=== PATIENT | female | born 1965 | race Caucasian/White ===

== ENCOUNTER 2019-07-31 11:40 | Emergency (ER) | payer OTHER ==
[2019-07-31 12:00] VITALS: BP 130/73
--- NOTE | 2019-07-31 12:02 | UC ---
Respiratory Complaint HPI - HPI Summary HPI Summary: 54 yo female presents with abdominal pain. She tells me that she has not had a bowel movement in 11 days. Over the last few months has had small hard BMs. Recalls that about 7 years ago she had an instance where she went 11 or 12 days without a BM, but this resolved with miralax and colace. This time she has taken miralax and colace with no results. She is not passing any stool or mucus. Yesterday she became nauseous and has not eaten since that time. She feels bloated with pain to her left abdomen. No hx of abdominal surgeries or obstruction. She returned from [facility] about 20 days ago. Had a root canal about a month ago - but no pain meds given. She denies vomiting, blood in stool, dysuria, back/flank pain. - History of Current Complaint Chief Complaint: UCAbdominalPain Stated Complaint: STOMACH COMPLAINT Time Seen by Provider: 07/31/19 12:02 Hx Obtained From: Patient Hx Last Menstrual Period: 4 WEEKS AGO Onset/Duration: Gradual Onset Severity Initially: Mild Severity Currently: Mild Pain Intensity: 3 Pain Scale Used: 0-10 Numeric - Allergies/Home Medications Allergies/Adverse Reactions: Allergies Allergy/AdvReac Type Severity Reaction Status Date / Time No Known Allergies Allergy Verified 07/31/19 12:00 PMH/Surg Hx/FS Hx/Imm Hx - Additional Past Medical History Additional PMH: BCC - Surgical History Surgical History: Yes Surgery Procedure, Year, and Place: tonsillectomy - Family History Known Family History: Positive: None - Social History Occupation: Employed Full-time Lives: With Family Alcohol Use: None Substance Use Type: None Smoking Status (MU): Never Smoked Tobacco - Immunization History Most Recent Influenza Vaccination: DID NOT GET THIS YEAR Review of Systems All Other Systems Reviewed And Are Negative: No Constitutional: Positive: Negative Skin: Positive: Negative Eyes: Positive: Negative ENT: Positive: Negative Respiratory: Positive: Negative Cardiovascular: Positive: Negative Gastrointestinal: Positive: Abdominal Pain, Nausea Genitourinary: Positive: Negative Neurological/Mental Status: Positive: Negative Psychological: Positive: Negative Physical Exam - Summary Physical Exam Summary: GENERAL: NAD. WDWN. No pain distress. SKIN: No rashes, sores, lesions, or open wounds. NECK: Supple. Nontender. No lymphadenopathy. CHEST: CTAB. No r/r/w. No accessory muscle use. Breathing comfortably and in no distress. CV: RRR. Pulses intact. Cap refill <2seconds ABDOMEN: Firmness to left periumbilical region with TTP. Otherwise soft. No CVA tenderness. Bowel sounds present NEURO: Alert. PSYCH: Age appropriate behavior. Triage Information Reviewed: Yes Vital Signs: Initial Vital Signs Temp 98.8 F 07/31/19 11:57 Pulse 86 07/31/19 11:57 Resp 15 07/31/19 11:57 BP 130/73 07/31/19 11:57 Pulse Ox 100 07/31/19 11:57 Vital Signs Reviewed: Yes Diagnostics - Radiology Abdomen XR Radiology Interpretation Completed By: Radiologist Summary of Radiographic Findings: Flat plate of the abdomen demonstrates a moderate amount of stool with stool in the right colon, descending colon and rectum. No dilated loops of small bowel are noted. The psoas margins are intact. IMPRESSION: Moderate to large amount of stool in the colon. No dilated loops of small bowel are noted. Respiratory Course/Dx - Course Course Of Treatment: XR as above. No indication of obstruction. Discussed with pt. Will have her try mag citrate or a fleet enema. If not results with this or if symptoms worsen - recommend going to the ER for further evaluation. Pt voiced understanding and agrees with plan. - Differential Dx/Diagnosis Provider Diagnosis: Constipated Discharge ED - Sign-Out/Discharge Documenting (check all that apply): Patient Departure All imaging exams completed and their final reports reviewed: Yes - Discharge Plan Condition: Stable Disposition: HOME Prescriptions: Magnesium CITRATE* [Citrate of Magnesia*] 300 ml PO ONCE #1 btl Patient Education Materials: Constipation (ED) Referrals: Radha Mauro MD [Primary Care Provider] - Additional Instructions: If you develop a fever, shortness of breath, chest pain, new or worsening symptoms - please call your PCP or go to the ED immediately. Your X-ray today did not show indicators of a bowel obstruction. Try the magnesium citrate and/or fleet enema. If you do not have any results within 12 hours or if your symptoms worsen - I recommend that you go to the ER for further evaluation. - Billing Disposition and Condition Condition: STABLE Disposition: Home
== END 2019-07-31 13:12 | disposition home or self-care (01) ==
LOC: UCEAST 11:40
DX: K59.00 Constipation, unspecified (principal); R10.9 Unspecified abdominal pain; R11.0 Nausea
CPT/HCPCS: 74019; 99212; G0463